=== PATIENT | male | born 1980 | race Two or more races ===

== ENCOUNTER 2022-01-29 12:46 | Emergency (ER) | payer OTHER ==
[~2022-01-29] VITALS: Ht 188 cm; Wt 117.9 kg
--- NOTE | 2022-01-29 12:55 | NUR ---
PAMELA EDEN [facility] FOR DIZZINESS AND 2 EPISODE OF FALL. ADMITS TO HEAVY SMOKING AND MARIJUANA USE LAST NIGHT. ATTACHED TO MONITOR, VITALS ARE WITHIN NORMAL LIMITS. PT SATTING AT 92% ON 2L NC. AWAITING MD ORDERS.
[2022-01-29] MEDS ORDERED: predniSONE 20 MG TABLET PO ONE (13:00)
[2022-01-29] MEDS ORDERED: IPRATROPIUM NEB FS 0.5 MG/2.5 ML AMPUL.NEB NEB ONE (13:00)
[2022-01-29] MEDS ORDERED: ALBUTEROL FS 2.5 MG/3 ML VIAL.NEB CONTNEB ONE (13:00)
[2022-01-29] MEDS ORDERED: predniSONE 20 MG TABLET ONE (13:13)
[2022-01-29] MEDS ORDERED: ALBUTEROL FS 2.5 MG/3 ML VIAL.NEB ONE (13:44)
[2022-01-29] MEDS ORDERED: IPRATROPIUM NEB FS 0.5 MG/2.5 ML AMPUL.NEB ONE (13:44)
[2022-01-29 13:59] LABS: BASOPHILS % (AUTO) 0.3 % (0.0-2.0); HEMATOCRIT 40 % (39-51); HEMOGLOBIN 13.8 g/dL (13.5-17.5); LYMPHOCYTES % (AUTO) 16.4 % (20.0-44.0); MEAN CORPUSCULAR HGB CONC 34 g/dl (31.0-36.0); MEAN CORPUSCULAR VOLUME 77 fL (80-96); MONOCYTES # (AUTO) 1.7 K/uL (0.1-1.30); MONOCYTES % (AUTO) 13.4 % (2.0-12.0); NEUTROPHILS # (AUTO) 8.4 K/uL (1.8-8.9); NEUTROPHILS % (AUTO) 67.9 % (43.0-81.0); PLATELET COUNT (AUTO) 356 K/uL (150-450); WHITE BLOOD COUNT (AUTO) 12.3 K/uL (4.3-11.0)
[2022-01-29 14:06] LABS: CALCIUM, SERUM 8.8 mg/dL (8.5-10.1); CARBON DIOXIDE 31 mmol/L (21-32); CHLORIDE 103 mmol/L (98-107); CREATININE 0.9 mg/dL (0.6-1.3); GLUCOSE 95 mg/dL (74-106); SODIUM SERUM 139 mmol/L (136-145); UREA NITROGEN, BLOOD 17 mg/dL (7-18)
[2022-01-29] MEDS ORDERED: ALBU18HF2 INH (15:07)
[2022-01-29] MEDS ORDERED: PRED20TA PO (15:07)
--- NOTE | 2022-01-29 17:16 | NUR ---
SET UP TRANSPORT WITH [facility] AND ETA IS 60-90 MINUTES
--- NOTE | 2022-01-29 19:14 | NUR ---
TRANSPORTATION ARRIVED, REPORT GIVEN TO EMT, PT TRANSPORTED BACK TO REHAB FACILITY IN STABLE CONDITION
--- NOTE | 2022-01-29 19:19 | NUR ---
Patient discharged to home in stable condition. Written and verbal after care instructions given. Patient verbalizes understanding of instruction.
[2022-01-29 19:20] VITALS: BP 136/82
== END 2022-01-29 19:20 | disposition home or self-care (01) ==
LOC: ER 12:52
DX: J45.901 Unspecified asthma with (acute) exacerbation (principal); R05.9 Cough, unspecified; R55 Syncope and collapse; I10 Essential (primary) hypertension; J45.909 Unspecified asthma, uncomplicated
CPT/HCPCS: 99285; 71045; 93005; 85025; 80048; 36415; 84484 ×2; 94640; J7512

== ENCOUNTER 2022-12-15 16:26 | Emergency (ER) | payer BC, OTHER ==
[~2022-12-15] VITALS: Ht 188 cm; Wt 123.4 kg
[~2022-12-15 16:26] MED LIST: ALBU18HF2 INH; PRED20TA PO
[2022-12-15 16:32] VITALS: TEMP 98.4
[2022-12-15 16:52] LABS: BASOPHILS % (AUTO) 0.3 % (0.0-2.0); EOSINOPHILS # (AUTO) 0.1 K/uL (0.0-0.7); EOSINOPHILS % (AUTO) 0.7 % (0.0-6.0); HEMATOCRIT 43 % (39-51); HEMOGLOBIN 15.1 g/dL (13.5-17.5); LYMPHOCYTES # (AUTO) 3.2 K/uL (0.8-4.8); LYMPHOCYTES % (AUTO) 24.9 % (20.0-44.0); MEAN CORPUSCULAR HEMOGLOBIN 26 PG (26.0-33.0); MEAN CORPUSCULAR HGB CONC 35 g/dl (31.0-36.0); MEAN CORPUSCULAR VOLUME 75 fL (80-96); MONOCYTES # (AUTO) 1.4 K/uL (0.1-1.30); MONOCYTES % (AUTO) 10.9 % (2.0-12.0); NEUTROPHILS # (AUTO) 8.1 K/uL (1.8-8.9); NEUTROPHILS % (AUTO) 63.2 % (43.0-81.0); PLATELET COUNT (AUTO) 401 K/uL (150-450); RED BLOOD CELL COUNT(AUTO) 5.73 MIL/uL (4.5-6.0); RED CELL DISTRIBUTION WIDTH 14.4 % (11.5-15.0); WHITE BLOOD COUNT (AUTO) 12.7 K/uL (4.3-11.0)
[2022-12-15 17:14] LABS: POTASSIUM 3.5 mmol/L (3.5-5.1); SODIUM SERUM 135 mmol/L (136-145)
[2022-12-15 17:15] LABS: CALCIUM, SERUM 9.8 mg/dL (8.5-10.1); CARBON DIOXIDE 27 mmol/L (21-32); CHLORIDE 97 mmol/L (98-107); CREATININE 0.9 mg/dL (0.6-1.3); GLUCOSE 103 mg/dL (74-106); UREA NITROGEN, BLOOD 12 mg/dL (7-18)
[2022-12-15 17:58] LABS: ALANINE AMINOTRANSFERASE 32 U/L (12-78); ALBUMIN 4.3 g/dL (3.4-5.0); ALKALINE PHOSPHATASE 87 U/L (46-116); ASPARTATE AMINOTRANSFERASE 19 U/L (15-37); BILIRUBIN,DIRECT 0.1 mg/dL (0.0-0.2); BILIRUBIN,TOTAL 0.5 mg/dL (0.2-1.0); TOTAL PROTEIN, SERUM 8.4 g/dL (6.4-8.2)
[2022-12-15 18:04] LABS: NT-PRO BNP < 5 pg/mL (0-125)
[2022-12-15] MEDS ORDERED: ONDANSETRON HCL/PF 4 MG/2 ML VIAL ONE (18:49)
[2022-12-15] MEDS ORDERED: ONDANSETRON HCL/PF 4 MG/2 ML VIAL IV ONE (19:00)
[2022-12-15 19:35] VITALS: BP 164/95; O2SAT 98
== END 2022-12-15 19:38 ==
LOC: ER 16:37
DX: R07.89 Other chest pain (principal); G40.909 Epilepsy, unspecified, not intractable, without status epilepticus; J45.909 Unspecified asthma, uncomplicated; I10 Essential (primary) hypertension; Z79.899 Other long term (current) drug therapy
CPT/HCPCS: 99285; 96374; 71045; 93005; 85025; 80048; 80076; 36415; 84484; 83880; J2405